=== PATIENT | male | born 1955 | race African-American/Black ===

== ENCOUNTER 2016-11-11 12:21 | Emergency (ER) | payer MEDICAID ==
[~2016-11-11] VITALS: Ht 172.7 cm; Wt 72.6 kg
[~2016-11-11 12:21] MED LIST: BACTRIM DS TAB1 EAC1 ORAL; CLINDAMYCIN PHO60 M1 TP; LIBRIUM25 MG ORAL
[2016-11-11] MEDS ORDERED: [UNRECOGNIZED DRUG - REMARK] (12:30)
[2016-11-11] MEDS ORDERED: [UNRECOGNIZED DRUG - REMARK] (12:30)
[2016-11-11] MEDS: Lidocaine 1% 10mg/ml/Epi 0.005mg/ml 30ml vial INJ ONE ×2 (12:45→12:48)
[2016-11-11 12:49] VITALS: BP 139/84
[2016-11-11] MEDS ORDERED: CEPHALEXIN500 MG ORAL (13:24)
--- NOTE | 2016-11-11 13:26 | Emergency Room Report ---
History of Present Illness General Chief Complaint: Skin Rash/Abscess Source: Patient Present Illness [facility] The patient is a 61-year-old male who presents today with complaints of a "abscess" to the right upper extremity. He states he noticed it 3 days ago and has been worsening since that time. He states the pain is currently 3/10 in severity, worse with palpation. He has not taken medication for the pain. Patient is an IV drug abuser, last injected heroin 3 days ago. He denies fever , chills or associated symptoms. Allergies: Coded Allergies: No Known Allergies (Unverified , 06/03/14) Patient History Social History: Reports: drug use - [facility] Nursing Documentation-[facility] Hx Hypertension: Yes Review of Systems Skin: Reports: other - "abscess" All Other Systems: negative except mentioned in HPI Physical Exam Vital Signs Date Time Temp Pulse Resp B/P (MAP) Pulse Ox O2 Delivery O2 Flow Rate FiO2 11/11/16 12:23 98.4 62 16 136/87 99 Room Air Sp02 EP Interpretation: reviewed, normal General Appearance: no apparent distress, alert, GCS 15, non-toxic Head: normocephalic, atraumatic Eyes: bilateral eye normal inspection, bilateral eye PERRL ENT: hearing grossly normal, normal pharynx, no angioedema, normal voice Neck: full range of motion, supple/symm/no masses Respiratory: chest non-tender, lungs clear, normal breath sounds, speaking full sentences Cardiovascular #1: regular rate, rhythm, no edema Cardiovascular #2: 2+ carotid (R), 2+ carotid (L), 2+ radial (R), 2+ radial (L) , 2+ dorsalis pedis (R), 2+ dorsalis pedis (L) Gastrointestinal: normal bowel sounds, non tender, soft, non-distended, no guarding, no rebound Rectal: deferred Genitourinary: normal inspection, no CVA tenderness Musculoskeletal: back normal, gait/station normal, normal range of motion, non- tender, calf tenderness Neurologic: alert, oriented x3, responsive, motor strength/tone normal, sensory intact, speech normal Psychiatric: judgement/insight normal, memory normal, mood/affect normal, no suicidal/homicidal ideation Reflexes: 3+ bicep (R), 3+ bicep (L), 3+ tricep (R), 3+ tricep (L), 3+ knee (R) , 3+ knee (L) Skin: normal color, no rash, warm/dry, well hydrated, other - one cm freely mobile mass to the medial aspect of the right forearm, no tenderness to palpation, scant overlying erythema Lymphatic: no adenopathy Medical Decision Making ER Course No need for incision and drainage at this time. Patient found to have a have a ganglion cyst with scant overlying erythema, for which I will prescribe Keflex. Patient is instructed to use warm compresses every 4 hours and follow up with primary doctor in 2 days for reevaluation. Patient understands and is agreeable with plan. Last Vital Signs Date Time Temp Pulse Resp B/P (MAP) Pulse Ox O2 Delivery O2 Flow Rate FiO2 11/11/16 12:49 98.3 66 15 139/84 99 Room Air Disposition: HOME, SELF-CARE Condition: Stable Scripts Cephalexin* (KEFLEX*) 500 Mg Capsule 500 MG ORAL EVERY 12 HOURS, #14 CAP 0 Refills Prov: Kenna Tarango 11/11/16 Referrals: NON PHYSICIAN (PCP) Kenna Tarango Nov 11, 2016 13:26
[2016-11-11 13:42] VITALS: BP 139/84
== END 2016-11-11 13:43 | disposition home or self-care (01) ==
LOC: EMR 12:59
DX: L02.413 Cutaneous abscess of right upper limb (principal); M67.431 Ganglion, right wrist; I10 Essential (primary) hypertension; F11.90 Opioid use, unspecified, uncomplicated
CPT/HCPCS: 99283

== ENCOUNTER 2018-08-15 13:12 | Emergency (ER) | payer MEDICAID ==
[~2018-08-15] VITALS: Ht 170.2 cm; Wt 67.1 kg
[~2018-08-15 13:12] MED LIST changes: +CEPHALEXIN500 MG ORAL; +[UNRECOGNIZED DRUG - REMARK]; +[UNRECOGNIZED DRUG - REMARK]
--- NOTE | 2018-08-15 13:20 | NUR ---
ED Nurse Note: Patient walked into ED c/o rash on the posterior neck and left under armpit since 2 weeks ago. patient reports it has been itching.
[2018-08-15] MEDS ORDERED: UNOBMED (13:21)
--- NOTE | 2018-08-15 13:35 | Emergency Room Report ---
History of Present Illness General Chief Complaint: Skin Rash/Abscess Source: Patient Present Illness HPI 63-year-old male with history of chronic eczema here complaining of worsening pruritic rash around his left armpit and the back of his neck x2 weeks. Patient has been to a python architect before however reports that he did not like to python architect. Patient denies any new exposure to allergens denies pain at the site of rash. Denies fever and chills, recent travel, contact with animals , chest pain, shortness of breath, palpitation, nausea vomiting, and all other associated symptoms. Patient denies any new medication use, alcohol intake, smoking or drugs. Denies rash on the rest of his body. Patient appears disheveled, and poor personal hygiene Allergies: Coded Allergies: No Known Allergies (Unverified , 06/03/14) Patient History Past Medical History: see triage record Past Surgical History: unable to obtain Pertinent Family History: none Immunizations: UTD Reviewed Nursing Documentation: PMH: Agreed; PSxH: Agreed Nursing Documentation-PMH Past Medical History: No History, Except For Hx Hypertension: Yes Review of Systems All Other Systems: negative except mentioned in HPI Physical Exam Vital Signs Date Time Temp Pulse Resp B/P (MAP) Pulse Ox O2 Delivery O2 Flow Rate FiO2 08/15/18 13:15 98.2 71 19 122/78 (93) 96 Room Air Sp02 EP Interpretation: reviewed, normal General Appearance: normal inspection, well appearing, no apparent distress, alert Head: normocephalic, atraumatic Eyes: bilateral eye normal inspection, bilateral eye PERRL ENT: normal ENT inspection, hearing grossly normal, normal pharynx Neck: normal inspection, full range of motion, supple Respiratory: normal inspection, chest non-tender, lungs clear, no rhonchi, no wheezing Cardiovascular #1: normal inspection, normal peripheral pulses, regular rate, rhythm, no murmur, normal capillary refill Gastrointestinal: normal inspection, soft Genitourinary: no CVA tenderness Musculoskeletal: normal inspection, back normal, digits/nails normal Neurologic: normal inspection, alert, oriented x3 Psychiatric: normal inspection, judgement/insight normal, memory normal Skin: rash - Eczema posterior neck and jessica-axillary on left side Lymphatic: normal inspection, no adenopathy Medical Decision Making PA Attestation All my diagnosis and treatment plans were reviewed ad discussed with my supervising physician Dr. Lacey Diagnostic Impression: Primary Impression: Eczema ER Course 63-year-old male with history of chronic eczema here complaining of worsening pruritic rash around his left armpit and the back of his neck x2 weeks. Patient has been to a python architect before however reports that he did not like to python architect. Patient denies any new exposure to allergens denies pain at the site of rash. Denies fever and chills, recent travel, contact with animals , chest pain, shortness of breath, palpitation, nausea vomiting, and all other associated symptoms. Patient denies any new medication use, alcohol intake, smoking or drugs. Denies rash on the rest of his body. Patient appears disheveled, and poor personal hygiene Ddx considered but are not limited to: Eczema, scabies, lice, Vital signs: are WNL, pt. is afebrile H&PE are most consistent with: Chronic eczema ORDERS: Prednisone, triamcinolone cream, Bactroban ED INTERVENTIONS: None required at this time. DISCHARGE: At this time pt. is stable for d/c to home. Will provide printed patient care instructions, and any necessary prescriptions. Care plan and follow up instructions have been discussed with the patient prior to discharge. I advised the patient to follow-up with a python architect as this is a recurring issue also personal hygiene highly advised wash all clothing and bedding avoid contact with new allergens use Bactrim and due to minor superficial skin infection due to extreme scratching of the skin Last Vital Signs Date Time Temp Pulse Resp B/P (MAP) Pulse Ox O2 Delivery O2 Flow Rate FiO2 08/15/18 13:15 98.2 71 19 122/78 (93) 96 Room Air Disposition: HOME, SELF-CARE Condition: Stable Scripts Mupirocin* (MUPIROCIN*) 22 Gm Oint...g. 1 APPLIC TOPIC THREE TIMES A DAY, #15 GM Prov: Dejuan Miles 08/15/18 Triamcinolone Acet (Triamcinolone Acetonide) 15 Gm Cream..g. 2 GM APPLIC TID, #15 GM Prov: Dejuan Miles 08/15/18 Prednisone* (PREDNISONE*) 10 Mg Tablet 10 MG ORAL BID for 5 Days, #10 TAB 0 Refills Prov: Dejuan Miles 08/15/18 Patient Instructions: Contact Dermatitis, [id number] Additional Instructions: Follow-up with a primary care for referral to python architect this is a recurring issue Dejuan Miles Aug 15, 2018 13:35
[2018-08-15] MEDS ORDERED: KENALOG 0.025%15 GM APPLIC (13:37)
[2018-08-15] MEDS ORDERED: MUPIROCIN22 GM TOPIC (13:37)
[2018-08-15] MEDS ORDERED: PREDNISONE10 MG ORAL (13:37)
[2018-08-15 13:41] VITALS: BP 121/74
[2018-08-15 13:42] VITALS: BP 122/78
--- NOTE | 2018-08-15 13:44 | NUR ---
ER DISCHARGE NOTE: Patient is cleared to be discharged per [employer], pt is aox4, on room air, with stable vital signs. pt was given dc and prescription instructions, pt was able to verbalize understanding, pt id band removed without complications. pt is able to ambulate with steady gait. pt took all belongings.
== END 2018-08-15 13:55 | disposition home or self-care (01) ==
LOC: EMR 13:53
DX: L30.9 Dermatitis, unspecified (principal); I10 Essential (primary) hypertension
CPT/HCPCS: 99282